=== PATIENT | male | born 1950 | race Hispanic/Latino ===

== ENCOUNTER 2022-03-30 16:02 | Emergency (ER) | payer OTHER ==
[~2022-03-30] VITALS: Ht 167.6 cm; Wt 81.6 kg
[2022-03-30] MEDS ORDERED: IBUPROFEN 600 MG TABLET PO ONE (16:30)
[2022-03-30] MEDS ORDERED: HYDROCODONE/ACETAMINOPHEN 10/325 MG TAB PO ONE (16:30)
[2022-03-30] MEDS ORDERED: IBUP-2070 PO (16:54)
[2022-03-30] MEDS ORDERED: ACET-2079 PO (16:54)
[2022-03-30] MEDS ORDERED: DOCU-116 PO (16:54)
[2022-03-30 16:59] VITALS: BP 118/72
== END 2022-03-30 17:05 | disposition home or self-care (01) ==
LOC: EDH 16:02
DX: S93.401A Sprain of unspecified ligament of right ankle, initial encounter (principal); E78.00 Pure hypercholesterolemia, unspecified; I10 Essential (primary) hypertension; Z90.89 Acquired absence of other organs; W18.39XA Other fall on same level, initial encounter; Y93.89 Activity, other specified; Y92.89 Other specified places as the place of occurrence of the external cause; Y99.8 Other external cause status
CPT/HCPCS: 73610

== ENCOUNTER → 2022-06-12 | Outpatient (CLI) | payer OTHER ==
[~2022-06-12] MED LIST: ACET-2079 PO; DOCU-116 PO; IBUP-2070 PO
== END | disposition home or self-care (01) ==
LOC: RAH 06-10 08:49
PROVIDERS: ATTEND Podiatrist
DX: S82.201A Unspecified fracture of shaft of right tibia, initial encounter for closed fracture (principal); S93.431A Sprain of tibiofibular ligament of right ankle, initial encounter; M25.371 Other instability, right ankle; X58.XXXA Exposure to other specified factors, initial encounter; Y93.89 Activity, other specified; Y92.89 Other specified places as the place of occurrence of the external cause; Y99.8 Other external cause status
CPT/HCPCS: 73721

== ENCOUNTER → 2023-01-28 | Outpatient (CLI) | payer OTHER | END | disposition home or self-care (01) | LOC: RAH 09:00 | PROVIDERS: ATTEND Internal Medicine | DX: K76.89 Other specified diseases of liver (principal); N28.1 Cyst of kidney, acquired; R94.5 Abnormal results of liver function studies | CPT/HCPCS: 76700 ==

== ENCOUNTER 2023-03-23 06:06 | Emergency (ER) | payer OTHER ==
[~2023-03-23] VITALS: Ht 167.6 cm; Wt 87.1 kg
[2023-03-23 06:59] LABS: BASOPHILS % (AUTO) 0.3 % (0.0-5.0); EOSINOPHILS % (AUTO) 0.1 % (0.0-8.0); HEMATOCRIT 42.1 % (42-54); LYMPHOCYTES % (AUTO) 14.5 % (21.0-51.0); MEAN CORPUSCULAR HEMOGLOBIN 28.5 pg (27.0-33.0); MEAN CORPUSCULAR VOLUME 86.3 fL (79-99); MONOCYTES % (AUTO) 4.9 % (3.0-13.0); NEUTROPHILS % (AUTO) 79.2 % (40.0-77.0); PLATELET COUNT (AUTO) 227 K/uL (130-400); RED BLOOD CELL COUNT(AUTO) 4.88 MIL/uL (4.50-6.20)
[2023-03-23] MEDS ORDERED: ONDANSETRON 4MG INJ IVP ONE (07:30)
[2023-03-23] MEDS ORDERED: MORPHINE 4 MG SYG IM ONE (07:30)
[2023-03-23] MEDS ORDERED: 0.9%NACL 1000ML 1,000 ML IV ONE (07:30)
[2023-03-23 07:54] LABS: CREATININE 1.7 mg/dL (0.5-1.5); TOTAL PROTEIN, SERUM 7.5 g/dL (6.0-8.3)
[2023-03-23 08:14] LABS: POTASSIUM 4.2 mmol/L (3.5-5.1)
[2023-03-23 10:54] VITALS: BP 132/66
== END 2023-03-23 11:07 | disposition home or self-care (01) ==
LOC: EDH 06:06
DX: N20.1 Calculus of ureter (principal); I10 Essential (primary) hypertension; E11.9 Type 2 diabetes mellitus without complications; R11.10 Vomiting, unspecified; Z79.899 Other long term (current) drug therapy; Z90.49 Acquired absence of other specified parts of digestive tract; Z98.890 Other specified postprocedural states
CPT/HCPCS: 99285; 74176; 96374; 96361; 84484; 80053; 83690; 85025; 36415; 96372; 93005; J7030; J2405; J2270

== ENCOUNTER 2023-07-25 13:17 | Emergency (ER) | payer OTHER ==
[~2023-07-25] VITALS: Ht 172.7 cm; Wt 81.6 kg
[2023-07-25] MEDS ORDERED: ONDANSETRON 4MG INJ IVP ONE (14:00)
[2023-07-25] MEDS ORDERED: 0.9%NACL 1000ML 1,000 ML IV ONE (14:00)
[2023-07-25] MEDS ORDERED: MORPHINE 4 MG SYG IVP ONE (14:00)
[2023-07-25 14:08] LABS: BASOPHILS # (AUTO) 0.05 K/uL (0.00-0.20); BASOPHILS % (AUTO) 0.8 % (0.0-5.0); EOSINOPHILS # (AUTO) 0.13 K/uL (0.00-0.70); HEMATOCRIT 41.7 % (42-54); IMMATURE GRANULOCYTE ABSOLUTE 0.04 K/uL (0-1); LYMPHOCYTES # (AUTO) 1.1 K/uL (1.0-4.8); MEAN CORPUSCULAR HEMOGLOBIN 29.3 pg (27.0-33.0); MEAN CORPUSCULAR HGB CONC 33.3 g/dL (32.0-36.0); MEAN CORPUSCULAR VOLUME 87.8 fL (79-99); MONOCYTES # (AUTO) 0.4 K/uL (0.1-1.0); NEUTROPHILS # (AUTO) 4.9 K/uL (1.8-7.7); NEUTROPHILS % (AUTO) 73.6 % (40.0-77.0); PLATELET COUNT (AUTO) 249 K/uL (130-400); RED BLOOD CELL COUNT(AUTO) 4.75 MIL/uL (4.50-6.20); RED CELL DISTRIBUTION WIDTH 13.7 % (11.0-15.5); WHITE BLOOD COUNT (AUTO) 6.7 K/uL (4.8-10.8)
[2023-07-25 14:13] LABS: CREATININE 1.3 mg/dL (0.5-1.5)
[2023-07-25 14:18] LABS: BILIRUBIN,TOTAL 0.2 mg/dL (0.2-1.0); TOTAL PROTEIN, SERUM 7.5 g/dL (6.0-8.3)
[2023-07-25 14:45] VITALS: BP 119/72; PULSE 78; RESP 18; O2SAT 96
[2023-07-25 16:22] LABS: APPEARANCE,URINE CLEAR (CLEAR); BILIRUBIN,URINE NEGATIVE (NEGATIVE); GLUCOSE, URINE (UA) NEGATIVE (NEGATIVE); KETONES,URINE NEGATIVE (NEGATIVE); LEUKOCYTE ESTERASE ,URINE NEGATIVE Leu/uL (NEGATIVE); NITRATE,URINE NEGATIVE (NEGATIVE); OCCULT BLOOD,URINE MODERATE (NEGATIVE); PROTEIN,URINE NEGATIVE (NEGATIVE); UROBILINOGEN,URINE 0.2 mg/dL (0.2-1.0)
[2023-07-25 16:23] LABS: ADD UA MICROSCOPIC YES; COLOR,URINE YELLOW (YELLOW); MUCUS,URINE RARE LPF (None Seen); RBC,URINE 26-50 /HPF (0-1); WBC,URINE 0-1 /HPF (0-1)
[2023-07-25] MEDS ORDERED: ONDA4TAB10 PO (16:29)
[2023-07-25] MEDS ORDERED: HYDR-4060 PO (16:29)
[2023-07-25] MEDS ORDERED: TAMS-1 PO (16:29)
[2023-07-25] MEDS ORDERED: IBUP-2070 PO (16:29)
== END 2023-07-25 16:41 | disposition home or self-care (01) ==
LOC: EDH 13:17
DX: N20.2 Calculus of kidney with calculus of ureter (principal); E11.9 Type 2 diabetes mellitus without complications; I10 Essential (primary) hypertension; Z90.49 Acquired absence of other specified parts of digestive tract
CPT/HCPCS: 99285; 74176; 96374; 96361; 96375; 80053; 85025; 81001; 36415; J7030; J2405; J2270

== ENCOUNTER → 2024-02-09 | Outpatient (CLI) | payer OTHER ==
[~2024-02-09] MED LIST changes: +HYDR-4060 PO; +ONDA4TAB10 PO; +TAMS-1 PO
== END | disposition home or self-care (01) ==
LOC: RAH 13:50
PROVIDERS: ATTEND Internal Medicine
DX: G31.9 Degenerative disease of nervous system, unspecified (principal); Z91.81 History of falling; W19.XXXD Unspecified fall, subsequent encounter
CPT/HCPCS: 70450

== ENCOUNTER → 2025-04-07 | Outpatient (CLI) | payer OTHER ==
[~2025-04-07] MED LIST changes: +IBUP-1492 PO; -IBUP-2070 PO; +ONDA-243 PO; -ONDA4TAB10 PO; -TAMS-1 PO; +TAMS-55 PO
--- NOTE | 2025-04-07 14:23 | HMCIMG ---
LUMBAR W FLEXION/EXTENSION REASON: Spinal stenosis Lumb region. COMPARISON: None TECHNIQUE: 5 images of the lumbar spine were obtained including flexion and extension views. FINDINGS: Grade 1 anterolisthesis is seen at the L5-S1 level with disc space narrowing. Disc space narrowing are also seen at L1-2, L3-4 and L4-5 levels. Vascular calcifications are seen. There is straightening of normal lordotic lumbar curvature which may be due to muscle spasm or positioning. IMPRESSION: Findings as described above.
--- NOTE | 2025-04-07 14:27 | HMCIMG ---
SHOULDER COMP 2+VWS LT HISTORY: Left shoulder pain COMPARISON: None TECHNIQUE: 2 images of the left shoulder were obtained. FINDINGS: There is no acute displaced fracture or dislocation. Degenerative changes are seen. IMPRESSION: 1. Findings as described above.
--- NOTE | 2025-04-07 14:27 | HMCIMG ---
CERV SPINE 4-5 VWS REASON: Cervical stenosis. COMPARISON: None TECHNIQUE: 8 images of cervical spine were obtained including flexion, extension views. FINDINGS: There is straightening of normal lordotic cervical curvature which may be muscle spasm or positioning. Disc space narrowing is seen at the C5-6 level. No loss of device seen. There are degenerative changes with spondylosis. No loss of vertebral height is seen. IMPRESSION: Findings as described above.
--- NOTE | 2025-04-07 14:27 | HMCIMG ---
SHOULDER COMP 2+VWS RT HISTORY: Shoulder pain COMPARISON: None TECHNIQUE: 2 images of the right shoulder were obtained. FINDINGS: There is no acute displaced fracture or dislocation. Degenerative changes are seen. IMPRESSION: 1. Findings as described above.
== END | disposition home or self-care (01) ==
LOC: RAH 11:18
PROVIDERS: ATTEND Physical Medicine & Rehabilitation
DX: M19.012 Primary osteoarthritis, left shoulder (principal); M19.011 Primary osteoarthritis, right shoulder; M48.061 Spinal stenosis, lumbar region without neurogenic claudication; M48.02 Spinal stenosis, cervical region; G56.03 Carpal tunnel syndrome, bilateral upper limbs; M65.332 Trigger finger, left middle finger; M99.04 Segmental and somatic dysfunction of sacral region; R26.89 Other abnormalities of gait and mobility; M47.812 Spondylosis without myelopathy or radiculopathy, cervical region
CPT/HCPCS: 72050; 72114; 73030

== ENCOUNTER → 2025-04-20 | Outpatient (CLI) | payer OTHER ==
[~2025-04-20] MED LIST changes: -IBUP-1492 PO; +IBUP-2070 PO
--- NOTE | 2025-04-21 07:42 | HMCIMG ---
EXAM: MR Cervical Spine Without Intravenous Contrast. CLINICAL HISTORY: Pain. TECHNIQUE: Magnetic resonance images of the cervical spine in multiple planes. CONTRAST: None. COMPARISON: X-ray cervical spine dated 04/07/25. FINDINGS: The imaged posterior fossa is unremarkable. The craniocervical junction is intact. No acute fracture. Chronic compression fractures of the C5 and C6 vertebral bodies with 20%-30% height loss. Partial loss of the normal lordotic curvature. Normal marrow signal of the vertebrae. Moderate cervical spondylosis with multilevel marginal osteophytes, facet arthropathy, disc desiccation and degenerative disc space reduction at C5-C6. Grade I degenerative retrolisthesis of C5 over C6. The cervical cord is in an anatomic location. No abnormal signal involves the cord. No extra-axial masses. The surrounding soft tissues are unremarkable. Level by level disease is present as follows: C1-C2: Mild osteoarthritis. C2-C3: No disc bulge or herniation. No neural foraminal, lateral recess or spinal canal stenosis. C3-C4: 3 mm posterior disc osteophyte complex bulge. Bilateral facet hypertrophy. Moderate bilateral lateral recess and neural foraminal stenosis. Mild spinal canal stenosis. C4-C5: 3 mm posterior disc osteophyte complex bulge. Bilateral facet hypertrophy. Mild right and moderate left lateral recess and neural foraminal stenosis. Mild spinal canal stenosis. C5-C6: 3 mm posterior disc osteophyte complex bulge. Bilateral facet hypertrophy. Moderate right and severe left lateral recess and neural foraminal stenosis. Mild spinal canal stenosis. Left exiting nerve root impingement. C6-C7: 2 mm posterior disc osteophyte complex bulge. Bilateral facet hypertrophy. Moderate bilateral lateral recess and neural foraminal stenosis. No spinal canal stenosis. C7-T1: No disc bulge or herniation. No neural foraminal, lateral recess or spinal canal stenosis. IMPRESSION: Chronic compression fractures of the C5 and C6 vertebral bodies with 20%-30% height loss. Partial loss of the normal lordotic curvature. Moderate cervical spondylosis with multilevel marginal osteophytes, facet arthropathy, disc desiccation and degenerative disc space reduction at C5-C6. Grade I degenerative retrolisthesis of C5 over C6. Posterior disc osteophyte complex bulges from C3-C4 through C6-C7. Moderate bilateral lateral recess and neural foraminal stenosis at C3-C4. Mild right and moderate left lateral recess and neural foraminal stenosis at C4-C5. Moderate right and severe left lateral recess and neural foraminal stenosis at C5-C6. Moderate bilateral lateral recess and neural foraminal stenosis at C6-C7. Mild spinal canal stenosis at C3-C4, C4-C5 and C5-C6. Left exiting nerve root impingement at C5-C6. X-ray cervical spine dated 04/07/25 reveals moderate cervical spondylosis with grade I degenerative retrolisthesis of C5 over C6. /[place]
--- NOTE | 2025-04-21 07:43 | HMCIMG ---
EXAM: MR Lumbar Spine Without Intravenous Contrast. CLINICAL HISTORY: Pain. TECHNIQUE: Magnetic resonance images of the lumbar spine in multiple planes. CONTRAST: None. COMPARISON: X-ray lumbar spine dated 04/07/25. FINDINGS: For this examination, spinal levels were labeled assuming five non-rib bearing, lumbar-type vertebrae with the inferior labeled L5. No acute fracture. Straightening of the normal lordotic curvature. Mild thoracolumbar dextroscoliosis. Normal vertebral body heights. Patchy marrow reconversion changes flatting diffuse osteopenia. Moderate lumbar spondylosis with multilevel marginal osteophytes, facet arthropathy, ligamentum flavum hypertrophy, disc desiccation and degenerative disc space reduction, most pronounced at L4-L5. Type I endplate changes at L4-L5. Conus medullaris terminates at the T12-L1 level. No abnormal epidural masses. The surrounding soft tissues are unremarkable. Individual spinal levels are described as follows: T12-L1: No disc bulge or herniation. No neural foraminal, lateral recess or spinal canal stenosis. L1-L2: No disc bulge or herniation. No neural foraminal, lateral recess or spinal canal stenosis. L2-L3: 3 mm diffuse disc bulge. Mild bilateral lateral recess and neural foraminal stenosis. No spinal canal stenosis. L3-L4: 4 mm diffuse disc bulge. Moderate bilateral lateral recess and mild bilateral neural foraminal stenosis. Mild spinal canal stenosis. L4-L5: 2-3 mm diffuse disc bulge. Bilateral ligamentum flavum and facet hypertrophy. Severe right and moderate left lateral recess and neural foraminal stenosis. Moderate spinal canal stenosis. Right exiting nerve root impingement. L5-S1: 3 mm diffuse disc bulge. Severe right and mild left lateral recess and neural foraminal stenosis. Mild spinal canal stenosis. Right exiting nerve root impingement. Incidental subcentimeter bilateral simple renal cortical cysts. IMPRESSION: Moderate lumbar spondylosis with multilevel marginal osteophytes, facet arthropathy, ligamentum flavum hypertrophy, disc desiccation and degenerative disc space reduction, most pronounced at L4-L5. Type I endplate changes at L4-L5. Straightening of the normal lordotic curvature. Mild thoracolumbar dextroscoliosis. Diffuse disc bulges from L2-L3 through L5-S1. Mild bilateral lateral recess and neural foraminal stenosis at L2-L3. Moderate bilateral lateral recess and mild bilateral neural foraminal stenosis at L3-L4. Severe right and moderate left lateral recess and neural foraminal stenosis at L4-L5. Severe right and mild left lateral recess and neural foraminal stenosis at L5-S1. Mild spinal canal stenosis at L3-L4 and L5-S1. Moderate spinal canal stenosis at L4-L5. Right exiting nerve root impingement at L4-L5 and L5-S1. X-ray lumbar spine dated 04/07/25 reveals moderate spondylosis and diffuse osteopenia. /[place]
== END | disposition home or self-care (01) ==
LOC: RAH 12:35
PROVIDERS: ATTEND Physical Medicine & Rehabilitation
DX: M48.52XA Collapsed vertebra, not elsewhere classified, cervical region, initial encounter for fracture (principal); M47.22 Other spondylosis with radiculopathy, cervical region; M47.816 Spondylosis without myelopathy or radiculopathy, lumbar region; M48.061 Spinal stenosis, lumbar region without neurogenic claudication; M51.16 Intervertebral disc disorders with radiculopathy, lumbar region; M53.3 Sacrococcygeal disorders, not elsewhere classified; R26.89 Other abnormalities of gait and mobility; M51.34 Other intervertebral disc degeneration, thoracic region; M43.16 Spondylolisthesis, lumbar region; M43.12 Spondylolisthesis, cervical region; M48.02 Spinal stenosis, cervical region; M50.323 Other cervical disc degeneration at C6-C7 level; M48.07 Spinal stenosis, lumbosacral region; M65.332 Trigger finger, left middle finger; M25.511 Pain in right shoulder; M41.85 Other forms of scoliosis, thoracolumbar region; M85.88 Other specified disorders of bone density and structure, other site; M25.78 Osteophyte, vertebrae; N28.1 Cyst of kidney, acquired; G56.03 Carpal tunnel syndrome, bilateral upper limbs
CPT/HCPCS: 72141; 72148

== ENCOUNTER → 2025-05-10 | Outpatient (CLI) | payer OTHER ==
--- NOTE | 2025-05-11 06:07 | HMCIMG ---
EXAM: CT Lumbar Spine Without IV Contrast CLINICAL HISTORY: Pain. TECHNIQUE: Spiral axial CT images through the lumbar spine were acquired, reconstructed in axial and sagittal projections, and imaged using soft tissue and bone algorithms. Reformatted/MPR images were performed. CT scan is done according to ALARA (As Low as Reasonably Achievable). CONTRAST: None. COMPARISON: MRI lumbar spine dated 04/20/2025. FINDINGS: No acute fracture. Loss of the lumbar lordosis with mild dextrocurvature reflects paraspinal muscle spasm. Normal vertebral body heights. Moderate reduction in L4-L5 and L5-S1 intervertebral disc height with degenerative endplate changes and vacuum phenomena. Decreased bone mineralization. Multilevel anterior osteophytes. Punctate nonobstructive bilateral renal calculi. Atherosclerotic vascular calcification is evident. Mildly ectatic infrarenal abdominal aorta measures up to 2.5 cm in diameter. Individual spinal levels are described as follows: T12-L1: No disc bulge or herniation. No neural foraminal, lateral recess, or spinal canal stenosis. L1-L2: No disc bulge or herniation. No neural foraminal, lateral recess, or spinal canal stenosis. L2-L3: 3 mm diffuse disc bulge. Mild bilateral lateral recess and neural foraminal stenosis. No spinal canal stenosis. L3-L4: 4 mm diffuse disc bulge. Moderate bilateral lateral recess and mild bilateral neural foraminal stenosis. Mild spinal canal stenosis. L4-L5: 2 mm to 3 mm diffuse disc bulge. Severe right and moderate left lateral recess and neural foraminal stenosis. Moderate spinal canal stenosis. L5-S1: 3 mm diffuse disc bulge. Severe right and mild left lateral recess and neural foraminal stenosis. Mild spinal canal stenosis. IMPRESSIONS: Moderate lumbar spondylosis and degenerative disc disease, most pronounced at L4-L5 and L5-S1 levels. No acute fracture. No gross interval changes compared to the previous MRI lumbar spine dated 04/20/2025. /[place]
--- NOTE | 2025-05-11 19:04 | HMCIMG ---
EXAM: MR Brain Without IV Contrast CLINICAL HISTORY: Abnormalities of gait and mobility. TECHNIQUE: Multiplanar multi-sequence MRI of the brain. CONTRAST: No. COMPARISON: CT dated 02/09/24. FINDINGS: Diffuse age-related cerebral atrophy is evident by dilated lateral ventricles, prominent cisterns, and sulcal spaces. Midbrain to griffin area ratio is reduced. Confluent T2, FLAIR hyperintense signal noted in the peritrigonal white matter of bilateral cerebral hemispheres, likely chronic small vessel ischemic changes. No evidence of acute cortical infarction, hemorrhage, mass or mass effect. No abnormal extra-axial fluid collection is present. The marrow signal within the skull base and calvarium is intact. The paranasal sinuses and mastoid air cells are clear. Prosthetic left eye noted. Right intraocular lens implant in situ. IMPRESSION: No acute intracranial abnormality or mass. Mild diffuse age-related cerebral atrophy and chronic small vessel ischemic changes. Midbrain to griffin area ratio is reduced. Imaging findings could represent progressive supranuclear palsy. Recommend clinical correlation. No acute interval changes. /Kathleen
== END | disposition home or self-care (01) ==
LOC: RAH 08:00
PROVIDERS: ATTEND Physical Medicine & Rehabilitation
DX: M51.16 Intervertebral disc disorders with radiculopathy, lumbar region (principal); M51.360 Other intervertebral disc degeneration, lumbar region with discogenic back pain only; M51.379 Other intervertebral disc degeneration, lumbosacral region without mention of lumbar back pain or lower extremity pain; M47.26 Other spondylosis with radiculopathy, lumbar region; M47.817 Spondylosis without myelopathy or radiculopathy, lumbosacral region; I67.82 Cerebral ischemia; M48.07 Spinal stenosis, lumbosacral region; G31.9 Degenerative disease of nervous system, unspecified; M43.8X6 Other specified deforming dorsopathies, lumbar region; M40.56 Lordosis, unspecified, lumbar region; M62.830 Muscle spasm of back; M25.78 Osteophyte, vertebrae; N20.0 Calculus of kidney; I77.811 Abdominal aortic ectasia; R26.89 Other abnormalities of gait and mobility; R29.6 Repeated falls
CPT/HCPCS: 70551; 72131